=== PATIENT | male | born 1995 | race Caucasian/White ===

== ENCOUNTER 2016-09-02 00:15 | Emergency (ER) | payer SELFPAY ==
[~2016-09-02] VITALS: Ht 172.7 cm; Wt 80.0 kg
[2016-09-02 00:18] VITALS: BP 142/79; PULSE 89; RESP 18; TEMP 98.8; O2SAT 100
[2016-09-02] MEDS ORDERED: ACETAMINOPHEN 500 MG CPLT PO ONE (00:45)
--- NOTE | 2016-09-02 00:59 | PD ---
HPI Chief Complaint: Abdominal Pain Time Seen by Provider: 00:37 Travel History International Travel<30 days: No Contact w/Intl Traveler<30days: No Traveled to known affect area: No History of Present Illness HPI The patient's 20. He states he is here because he has pain in the region of the right lateral ribs and right abdomen. He's had the pain many times previously. Typically dose of Motrin alleviates symptoms. While living at the [facility] he was unable to get any Motrin and so he came to the ER. He's had no fever nausea or vomiting. The pain is not worse with palpation nor is it worse with changes in position. His appetite has been normal. He was happy to receive a dose of Tylenol. PFS Past Medical History Medical History: Denies Significant Hx ADHD: Yes Diminished Hearing: No Tetanus Vaccination: < 5 Years Influenza Vaccination: No Past Surgical History Surgical History: No Previous Surgery Social History Alcohol Use: No Tobacco Use: Yes (PT STATES HE QUIT TODAY) Substance Use: Yes (Patient reports occassional use; does not see this as an abuse issue.) Allergies-Medications (Allergen,Severity, Reaction): Coded Allergies: No Known Allergies (Unverified , 09/02/16) Per pt. Reported Meds & Prescriptions Reported Meds & Active Scripts Active No Active Prescriptions or Reported Medications Review of Systems Except as stated in HPI: all other systems reviewed are Neg Physical Exam Narrative GENERAL: 20-year-old male pleasant no acute distress SKIN: Warm and dry. HEAD: Atraumatic. Normocephalic. EYES: Pupils equal and round. No scleral icterus. No injection or drainage. ENT: No nasal bleeding or discharge. Mucous membranes pink and moist. NECK: Trachea midline. No JVD. CARDIOVASCULAR: Regular rate and rhythm. No murmur appreciated. RESPIRATORY: No accessory muscle use. Clear to auscultation. Breath sounds equal bilaterally. GASTROINTESTINAL: Abdomen soft, non-tender, nondistended. Hepatic and splenic margins not palpable. No mass or tenderness about the right thoraco-abdomen. MUSCULOSKELETAL: No obvious deformities. No clubbing. No cyanosis. No edema. NEUROLOGICAL: Awake and alert. No obvious cranial nerve deficits. Motor grossly within normal limits. Normal speech. PSYCHIATRIC: Appropriate mood and affect; insight and judgment normal. Data Data Last Documented VS Vital Signs Date Time Temp Pulse Resp B/P Pulse Ox O2 Delivery O2 Flow Rate FiO2 09/02/16 00:23 18 09/02/16 00:18 98.8 89 142/79 100 Orders Acetaminophen (Tylenol) (09/02/16 00:45) MDM Medical Decision Making Medical Screen Exam Complete: Yes Emergency Medical Condition: Yes Medical Record Reviewed: Yes Differential Diagnosis Constipation, Gastritis, Acute Cholecystitis, Biliary Colic, Pancreatitis, DERAS , Hepatitis, Bowel Obstruction, Cystitis, Mesenteric Ischemia, AAA, Appendicitis , Renal Stone/Hydronephrosis, GERD, perforated viscous Narrative Course Etiology of his complaint is considerable certainly benign in nature. The patient is ready for discharge Diagnosis Primary Impression: Abdominal pain Qualified Code: R10.9 - Abdominal pain, unspecified location Additional Impression: Malingerer Referrals: Primary Care Physician 2 days Additional Instructions: You have a choice when it comes to health care, and we are glad that you chose [facility]. Hopefully, we have met your expectations on today's visit. You are welcome to return to [facility] at any time, as we are committed to meeting the health care needs of our community. Med/Other Pt SpecificInfo: No Change to Meds Scripts No Active Prescriptions or Reported Meds Disposition: DISCHARGE HOME Condition: Adria Rose MD Sep 02, 2016 00:59
== END 2016-09-02 01:24 | disposition home or self-care (01) ==
LOC: NEPC 01:09
DX: R10.9 Unspecified abdominal pain (principal); Z76.5 Malingerer [conscious simulation]; F90.9 Attention-deficit hyperactivity disorder, unspecified type; F17.210 Nicotine dependence, cigarettes, uncomplicated
CPT/HCPCS: 99284

== ENCOUNTER 2016-09-02 22:21 | Emergency (ER) | payer SELFPAY ==
[~2016-09-02] VITALS: Ht 172.7 cm; Wt 77.3 kg
[2016-09-02 22:24] VITALS: BP 133/79; PULSE 92; RESP 16; TEMP 98.5; O2SAT 98
== END 2016-09-03 01:14 | disposition left against medical advice (07) ==
LOC: NED 22:21
DX: Z53.21 Procedure and treatment not carried out due to patient leaving prior to being seen by health care provider (principal)
CPT/HCPCS: 99281

== ENCOUNTER 2017-08-25 15:49 | Emergency (ER) | payer SELFPAY ==
[~2017-08-25] VITALS: Ht 170.2 cm; Wt 77.3 kg
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
[2017-08-25 16:36] VITALS: BP 132/76; PULSE 76; RESP 18; TEMP 98; O2SAT 100
[2017-08-25 17:31] LABS: AUTOMATED NEUTROPHIL # 8.1 TH/MM3 (1.8-7.7); BASOPHIL % 0.4 % (0.0-2.0); EOSINOPHIL # 0.5 TH/MM3 (0-0.4); EOSINOPHIL % 3.9 % (0.0-4.0); HEMATOCRIT 43.3 % (39.0-51.0); HEMOGLOBIN 14.8 GM/DL (13.0-17.0); LYMPH % 17.5 % (9.0-44.0); MEAN CELL VOLUME 94.6 FL (80.0-100.0); MEAN CORPUSCULAR HEMOGLOBIN 32.4 PG (27.0-34.0); MEAN CORPUSCULAR HGB CONC 34.2 % (32.0-36.0); MEAN PLATELET VOLUME 10.5 FL (7.0-11.0); MONO % 7.4 % (0.0-8.0); MONOCYTE # 0.8 TH/MM3 (0-0.9); NEUT % 70.8 % (16.0-70.0); PLATELET COUNT 120 TH/MM3 (150-450); RED BLOOD COUNT 4.58 MIL/MM3 (4.50-5.90); RED CELL DISTRIBUTION WIDTH 12.9 % (11.6-17.2); WHITE BLOOD COUNT 11.4 TH/MM3 (4.0-11.0)
[2017-08-25 17:54] LABS: ALBUMIN 4.2 GM/DL (3.4-5.0); ALT (GPT) 96 U/L (12-78); AST (GOT) 38 U/L (15-37); BICARBONATE 30.5 MEQ/L (21.0-32.0); BLOOD UREA NITROGEN 10 MG/DL (7-18); CALCIUM 8.8 MG/DL (8.5-10.1); CHLORIDE 105 MEQ/L (98-107); CREATININE 0.72 MG/DL (0.60-1.30); GLOMERULAR FILTRATION RATE 137 ML/MIN (>89); GLUCOSE,RANDOM 90 MG/DL (74-106); SODIUM (NA) 140 MEQ/L (136-145)
[2017-08-25 17:56] LABS: ALKALINE PHOSPHATASE 76 U/L (45-117); TOTAL BILIRUBIN ADULT 0.6 MG/DL (0.2-1.0); TOTAL PROTEIN 7.8 GM/DL (6.4-8.2)
[2017-08-25 22:11] VITALS: BP 106/66; PULSE 66; RESP 18
== END 2017-08-26 00:48 ==
LOC: NEDAMB 15:49 → NEPJ 08-26 00:48
DX: Z04.6 Encounter for general psychiatric examination, requested by authority (principal); F90.9 Attention-deficit hyperactivity disorder, unspecified type; F19.90 Other psychoactive substance use, unspecified, uncomplicated; F17.210 Nicotine dependence, cigarettes, uncomplicated
CPT/HCPCS: 80053; 80307; 85025; 99285